=== PATIENT | female | born 1940 | race Caucasian/White ===

== ENCOUNTER 2019-03-04 10:32 | Emergency (ER) | payer MEDICARE, OTHER ==
--- NOTE | 2019-03-04 10:58 | RAD ---
EXAM: 3 views of the right hand COMPARISON: None HISTORY: Redness and swelling of the right hand FINDINGS: 3 views of the right hand shows no evidence of acute fracture or dislocation. There is melo deling of the distal radius which may represent a remote healed fracture. No degenerative changes are seen. Mild diffuse soft tissue swelling is present. IMPRESSION: No evidence of acute osseous abnormality.
[2019-03-04 11:36] LABS: #Basophils 0.1 thou/uL (0.0-0.2); #Eosinphils 0.1 thou/uL (0.0-0.7); #Lymphocytes 1.1 thou/uL (1.20-3.40); #Monocytes 0.6 thou/uL (0.11-0.59); #Neutrophils 3.6 thou/uL (1.40-6.50); %Basophils 1.5 % (0.0-1.0); %Eosinophils 2.4 % (0.0-10.0); %Lymphocytes 19.5 % (21.0-51.0); %Neutrophils 65.6 % (42.0-75.0); Hemoglobin 12.2 g/dL (12.0-16.0); Mean Corpuscular HGB CONC 32.7 g/dL (32.0-36.0); Mean Corpuscular Hemoglobin 28.4 pg (27.0-31.0); Mean Corpuscular Volume 86.8 fL (78.0-98.0); Mean Platelet Volume 8.1 fL (7.4-10.4); Platelet Count 244 thou/uL (130-400); RBC Distribution Width 12.6 % (11.5-14.5); White Blood Cell (WBC) Count 5.4 thou/uL (4.8-10.8)
[2019-03-04 11:58] LABS: ALT (SGPT) 9 U/L (8-55); AST (SGOT) 17 U/L (5-34); Alkaline Phosphatase 79 U/L (40-150); Anion Gap 10 mmol/L (10-20); BUN (Urea Nitrogen) 17 mg/dL (9.8-20.1); Bilirubin, Total 0.4 mg/dL (0.2-1.2); Calc. Creatinine Clearance 0 mL/min (70-130); Calcium 9.5 mg/dL (7.8-10.44); Carbon Dioxide 28 mmol/L (23-31); Chloride 104 mmol/L (98-107); Estimated GFR-MDRD 45; Globulin 2.9 g/dL (2.4-3.5); Glucose 101 mg/dL (83-110); Potassium 3.4 mmol/L (3.5-5.1); Protein, Total 6.9 g/dL (6.0-8.3); Sodium 139 mmol/L (136-145)
== END 2019-03-04 14:20 | disposition home or self-care (01) ==
LOC: ERS 10:32
DX: L03.113 Cellulitis of right upper limb (principal)
CPT/HCPCS: 36415; 80053; 83605; 85025

== ENCOUNTER 2020-07-11 13:45 | Outpatient (CLI) | payer MEDICARE, OTHER ==
--- NOTE | 2020-07-11 14:18 | BD ---
EXAM: Bone densitometry using DEXA HISTORY: 80 yo female. Screening for postmenopausal osteoporosis FINDINGS: L1--bone mineral density 0.805 g/sq cm; T score -1 7 ; Z score 0.6 L2--bone mineral density 0.795 g/sq cm; T score -2.1 ; Z score 0.4 L3--bone mineral density 0.845 g/sq cm; T score -2.2 ; Z score 0.5 L4--bone mineral density 0.882 g/sq cm; T score -1.6 ; Z score 1.1 Total L1-L4--bone mineral density 0.832 g/sq cm; T score -2.0 ; Z score 0.6 Left femoral neck--bone mineral density0.562; T score -2.6 ; Z score -0.4 Total proximal left femur--bone mineral density 0.705; T score -1.9 ; Z score 0.0 IMPRESSION: Osteoporosis
== END 2020-07-11 13:46 | disposition home or self-care (01) ==
LOC: BICMAMMO 13:45
PROVIDERS: ATTEND Internal Medicine
DX: Z13.820 Encounter for screening for osteoporosis (principal); M81.0 Age-related osteoporosis without current pathological fracture; Z78.0 Asymptomatic menopausal state
CPT/HCPCS: 77080

== ENCOUNTER 2022-12-10 14:22 | Outpatient (CLI) | payer MEDICARE | END 2022-12-10 14:23 | disposition home or self-care (01) | LOC: BICMAMMO 14:22 | PROVIDERS: ATTEND Internal Medicine | DX: M81.0 Age-related osteoporosis without current pathological fracture (principal); M85.88 Other specified disorders of bone density and structure, other site | CPT/HCPCS: 77080 ==